=== PATIENT | female | born 1955 | race African-American/Black ===

== ENCOUNTER 2016-09-30 17:11 | Emergency (ER) | payer OTHER ==
[~2016-09-30] VITALS: Ht 170.2 cm; Wt 135.0 kg
[2016-09-30 17:32] VITALS: Ht 170.2 cm; Wt 135.0 kg
--- NOTE | 2016-09-30 18:14 | ERD ---
ER Documentation Chief Complaint Date/Time DATE: 09/30/16 TIME: 18:12 Chief Complaint LEFT FOOT SWELLING/PAIN X 1 WEEK HPI Patient is a 61-year-old female who presents with 5 days of pain to the left foot is worse with walking. The pain was sudden onset, constant, moderate, dull. It started when she dropped a crate onto her left foot. Patient denies other injury, denies previous injury to the left foot. Patient denies numbness. ROS All systems reviewed and are negative except as per history of present illness. Medications Home Meds Active Scripts Tramadol HCl (Tramadol HCl) 50 Mg Tablet, 50 MG PO Q6 Y for PAIN, #20 TAB Prov:LUIZ GÓMEZ MD 09/30/16 PMhx/Soc Past medical history: Hypertension, hearing loss Past surgical history: Denies Social history: Denies tobacco or alcohol. Medical and Surgical Hx: pt denies Surgical Hx Hx Alcohol Use: No Hx Substance Use: No Hx Tobacco Use: No Smoking Status: Never smoker FmHx Family History: No coronary disease, No diabetes Physical Exam Vitals Vital Signs Date Time Temp Pulse Resp B/P Pulse Ox O2 Delivery O2 Flow Rate FiO2 09/30/16 17:32 98.9 74 18 200/101 98 Physical Exam Const: Alert, no acute distress Head: Atraumatic Eyes: Normal Conjunctiva, no pallor, no icterus ENT: Normal External Ears, Nose and Mouth. Neck: Full range of motion..~ No meningismus. No JVD Skin: Intact, no petechiae or rashes, no erythema, no warmth Vascular: 2+ DP pulses bilateral lower extremities, 2 second cap refill all toes Back: No midline or flank tenderness Ext: No cyanosis, or edema, mild tenderness to the midfoot with soft tissue swelling, no ankle tenderness, no visible deformity Neur: Awake and alert, strength and sensation full in 4 extremities Psych: Normal Mood and Affect Procedures/MDM MDM: Patient is a 61-year-old female who dropped a concrete onto her left foot 5 days ago. She has a relatively benign exam and no fracture on x-ray. There is no concern for Lisfranc injury. She is able to ambulate relatively well. I will discharge her with a prescription for tramadol. Patient was noted to have significantly elevated blood pressure, and has a history of hypertension. She is on antihypertensive medication. I advised her to follow-up with her PMD in the next 1-2 days for blood pressure recheck and titration of medication. Departure Diagnosis: Primary Impression: Contusion of left foot Encounter type: initial encounter Qualified Code: S90.32XA - Contusion of left foot, initial encounter Condition: Stable LUIZ GÓMEZ MD September 30, 2016 18:14
--- NOTE | 2016-09-30 18:59 | RADRPT ---
PROCEDURE: X-ray left foot CLINICAL INDICATION: Injury to the left foot. TECHNIQUE: 3 views left foot. COMPARISON: None FINDINGS: Soft tissue swelling over the dorsum of the left forefoot. No acute fracture or dislocation. Remai leo soft tissues unremarkable. IMPRESSION: Soft tissue swelling, without acute fracture. RPTAT: [facility] Physician Ke Date Time Electronically viewed and signed by Charlette Kay Physician on 09/30/2016 18:59 RS/
[2016-09-30] MEDS ORDERED: TRAM50TA2 PO (19:31)
== END 2016-09-30 20:30 | disposition home or self-care (01) ==
LOC: FTE 17:11
DX: S90.32XA Contusion of left foot, initial encounter (principal); I10 Essential (primary) hypertension; W20.8XXA Other cause of strike by thrown, projected or falling object, initial encounter; Y92.9 Unspecified place or not applicable